=== PATIENT | female | born 1995 | race Caucasian/White ===

== ENCOUNTER → 2017-09-20 | Outpatient (CLI) | payer BC ==
[2017-09-20 19:05] LABS: HCG, SERUM QUANTITATIVE 4872 MIU/ML
== END ==
LOC: M SMT 13:43
DX: O20.0 Threatened abortion (principal); Z3A.00 Weeks of gestation of pregnancy not specified
CPT/HCPCS: 84702

== ENCOUNTER → 2017-09-22 | Outpatient (CLI) | payer BC ==
[2017-09-22 14:15] LABS: HCG, SERUM QUANTITATIVE 2216 MIU/ML
== END ==
LOC: M SMT 08:36
DX: O20.0 Threatened abortion (principal)
CPT/HCPCS: 84702

== ENCOUNTER → 2017-09-27 | Outpatient (CLI) | payer BC ==
[2017-09-27 14:15] LABS: HCG, SERUM QUANTITATIVE 57 MIU/ML
== END ==
LOC: M SMT 09:06
DX: O20.0 Threatened abortion (principal)
CPT/HCPCS: 84702

== ENCOUNTER → 2017-10-06 | Outpatient (CLI) | payer BC ==
[2017-10-06 13:20] LABS: HCG, SERUM QUANTITATIVE 4 MIU/ML
== END ==
LOC: M SMT 09:27
DX: O20.0 Threatened abortion (principal)

== ENCOUNTER → 2018-05-23 | Outpatient (CLI) | payer BC ==
[2018-05-23 14:15] LABS: HCG, SERUM QUALITATIVE NEGATIVE (NEGATIVE)
[2018-05-23 14:22] LABS: FREE T4 0.81 NG/DL (0.76-1.46)
== END ==
LOC: M SMT 11:34
PROVIDERS: ATTEND Advanced Practice Midwife
DX: N91.1 Secondary amenorrhea (principal)